=== PATIENT | female | born 1930 | race Asian ===

== ENCOUNTER 2016-05-12 10:40 | Emergency (ER) | payer MEDICARE, MEDICAID ==
[2016-05-12] MEDS ORDERED: ALBUTEROL NEB 2.5 MG/3 ML INH STA (12:16)
[2016-05-12] MEDS ORDERED: ALBUTEROL NEB 2.5 MG/3 ML INH ONE (12:23)
[2016-05-12] MEDS ORDERED: ACETAMINOPHEN 325 MG TABLET PO STA (13:15)
[2016-05-12] MEDS ORDERED: ACETAMINOPHEN 325 MG TABLET PO ONE (13:16)
== END 2016-05-12 13:21 | disposition home or self-care (01) ==
DX: J10.1 Influenza due to other identified influenza virus with other respiratory manifestations (principal); J45.21 Mild intermittent asthma with (acute) exacerbation; I10 Essential (primary) hypertension; Z79.82 Long term (current) use of aspirin
CPT/HCPCS: 36415; 71020; 80053; 83605; 83690; 85025; 87275; 87276; 94640; 99283; 99284; A9270; J7613

== ENCOUNTER 2017-08-24 09:06 | Outpatient (CLI) | payer MEDICARE, MEDICAID ==
--- NOTE | 2017-08-25 11:41 | DEXA Report ---
DEXA SCAN: 08/24/2017 CLINICAL INDICATION: Postmenopausal. TECHNIQUE: Dual energy x-ray absorptiometry (DXA) was performed on a [employer] system. Regions measured are the AP spine, femoral neck, and, if needed, forearm. COMPARISON: None. In accordance with the International Society for Clinical Densitometry (ISCD) guidelines, data from previous exams may be reanalyzed using current recommendations and techniques. This is done to allow a more accurate basis for comparison with the current study. FINDINGS Data for the lumbar spine is as follows: REGION BMD (g/cm/cm) T-SCORE Z-SCORE L1 1.008 -1.0 -- L2 0.980 -1.8 -- L3 1.021 -1.5 -- L4 0.978 -1.8 -- L1-L4 0.996 -1.5 -- NOTE: All evaluable vertebrae are used for classification. Data for the hip is as follows: REGION BMD (g/cm/cm) T-SCORE Z-SCORE Neck 0.700 -2.4 -- TOTAL 0.772 -1.9 -- NOTE: The femoral neck or total proximal femur, whichever is lowest, is used for classification. IMPRESSION WHO CLASSIFICATION BASED ON THE INTERNATIONAL REFERENCE STANDARD IS OSTEOPENIA. FRACTURE RISK IS INCREASED. RECOMMENDATION: Patients with diagnosis of osteoporosis or osteopenia should have regular bone mineral density assessment. For those eligible for Medicare, routine testing is allowed once every 2 years. Testing frequency can be increased for patients who have rapidly progressing disease or for those who are receiving medical therapy to restore bone mass. COMMENT World Health Organization (WHO) definitions for osteoporosis and osteopenia: NORMAL BMD: T-score at 1.0 or higher, fracture risk is low. OSTEOPENIA BMD: T-score between 1.0 and -2.5, fracture risk is increased. OSTEOPOROSIS BMD: T-score at 2.5 or lower, fracture risk high. National Osteoporosis Foundation recommends: 1. Obtain adequate dietary calcium (at least 1200 mg per day) and vitamin D (400 -800 international units per day). 2. Participate, as appropriate, in regular weightbearing and muscle- strengthening exercise. 3. Avoid tobacco use and reduce alcohol and caffeine intake. 4. For more detailed information see the website at www.NOF.org. TD: 08/24/2017 12:39 [facility]
== END 2017-08-24 09:07 | disposition home or self-care (01) ==
LOC: DI 09:06
PROVIDERS: ATTEND Family Medicine
DX: M85.89 Other specified disorders of bone density and structure, multiple sites (principal); Z78.0 Asymptomatic menopausal state
CPT/HCPCS: 77080

== ENCOUNTER → 2019-01-31 | Outpatient (CLI) | payer MEDICARE, MEDICAID ==
--- NOTE | 2019-02-01 14:20 | XRAY Report ---
Reason: COUGH Procedure Date: 01/31/2019 Accession Number: [id number] / [id number] Procedure: WCP - Chest 2 View X-Ray CPT Code: 33794 FULL RESULT: EXAM: CHEST RADIOGRAPHY EXAM DATE: 01/31/2019 02:48 PM. CLINICAL HISTORY: COUGH. COMPARISON: CHEST 2 VIEW PA/LAT 05/12/2016 12:00 PM CHEST W/O 07/11/2013 10:58 AM CHEST 2 VIEW PA/LAT 04/14/2013 10:19 AM. TECHNIQUE: 2 views. FINDINGS: Lungs/Pleura: Elongated left apical scarring. New patchy and elongated right perihilar opacity. Mediastinum: Tortuous thoracic aorta. Mild cardiomegaly. Other: None. IMPRESSION: 1. New right perihilar opacity may be related to pneumonia and atelectasis. Recommend follow-up chest x-ray in 4-6 weeks to ensure resolution. 2. Left apical scarring. [facility]
== END ==
LOC: DI.WCP 08:00 → EDSTATUS 12:30
PROVIDERS: ATTEND Physician Assistant
DX: R91.8 Other nonspecific abnormal finding of lung field (principal)
CPT/HCPCS: 71046

== ENCOUNTER 2019-02-18 11:23 | Outpatient (CLI) | payer MEDICARE, MEDICAID ==
--- NOTE | 2019-02-20 00:56 | XRAY Report ---
Reason: PNEUMONIA Procedure Date: 02/18/2019 Accession Number: [id number] / [id number] Procedure: WCP - Chest 2 View X-Ray CPT Code: 94153 FULL RESULT: EXAM: CHEST RADIOGRAPHY EXAM DATE: 02/18/2019 11:23 AM. CLINICAL HISTORY: Follow-up pneumonia. COMPARISON: CHEST 2 VIEW 01/31/2019 2:24 PM CHEST 2 VIEW PA/LAT 05/12/2016 12:00 PM. TECHNIQUE: 2 views. FINDINGS: Lungs/Pleura: Right midlung linear opacity appears unchanged, could be atelectasis or scarring. Left apex focal scarring with calcification, unchanged. No consolidation, airspace disease, pleural effusion or pneumothorax. Mediastinum: Heart and mediastinal contours are unremarkable. IMPRESSION: Right midlung linear opacity appears unchanged, could be atelectasis or scarring. Left apex focal scarring with calcification, unchanged. No consolidation, airspace disease, pleural effusion or pneumothorax. [facility]
== END 2019-02-18 23:59 | disposition home or self-care (01) ==
LOC: DI.WCP 11:23
PROVIDERS: ATTEND Physician Assistant
DX: J18.9 Pneumonia, unspecified organism (principal)
CPT/HCPCS: 71046